=== PATIENT | male | born 1985 | race Caucasian/White ===

== ENCOUNTER 2021-06-14 12:42 | Emergency (ER) | payer MEDICAID, SELFPAY ==
[2021-06-14 13:37] VITALS: BP 230/146; PULSE 94; RESP 18; TEMP 36.6; O2SAT 98; BMI 28.1
[2021-06-14 16:14] LABS: MANUAL DIFF FLAG NO
[2021-06-14 16:17] LABS: Basophils Absolute Auto 0.1 X10*3/uL (0.0-0.2); Basophils Percent Auto 0.5 % (0-2); Hematocrit 48.7 % (42.0-52.0); Hemoglobin 16.8 g/dl (14.0-18.0); Imm Gran Abs Auto 0.02 X10*3/uL (0.00-0.03); Imm Gran Pct Auto 0.2 % (0.0-0.4); Lymphocytes Absolute Auto 1.5 X10*3/uL (1.2-4.9); Lymphocytes Percent Auto 14.9 % (20-40); Mean Corpuscular HGB Conc 34.5 g/dl (31.0-36.0); Mean Corpuscular Hemoglobin 32.9 pg (27.0-33.0); Mean Corpuscular Volume 95.5 fL (80.0-98.0); Mean Platelet Volume 9.4 fL (9.4-12.4); Monocytes Absolute Auto 0.7 X10*3/uL (0.1-1.2); Monocytes Percent Auto 6.7 % (2-11); Neutrophils Percent Auto 77.7 % (45-73); Platelet Count 315 X10*3/uL (160-400); Red Cell Distribution Width 11.9 % (11.0-16.0); White Blood Count 10.3 X10*3/uL (4.8-10.8)
[2021-06-14 16:37] LABS: Alanine Aminotransferase 124 U/L (0-40); Albumin Level 4.9 g/dL (3.5-5.0); Alkaline Phosphatase 70 U/L (39-117); Anion Gap 18 (12-20); Aspartate Amino Transferase 64 U/L (5-37); Bilirubin Total 1.1 mg/dL (0.0-1.0); Blood Urea Nitrogen 8 mg/dL (9-16); Calcium 10.2 mg/dL (8.4-10.2); Carbon Dioxide 22 mmol/L (22-29); Chloride 103 mmol/L (96-108); Creatinine Clr Calc Pharmacy 125.9; Estimated Glomerular Filt Rate > 60; Glucose Random 102 mg/dL (60-115); Potassium 4.3 mmol/L (3.3-5.1); Sodium 139 mmol/L (135-145); Total Protein 8.5 g/dL (6.5-8.0)
[2021-06-14 16:56] VITALS: BP 212/100; PULSE 90; RESP 19; O2SAT 97
--- NOTE | 2021-06-14 16:57 | PC.NURSE ---
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 PT DENIES ANY CP OR SOB. PT STATES HE JUST GETS ANXIOUS WHEN COMING HERE TODAY. PT IS A [employer] PATIENT AND USES [employer] TO HELP HIM SLEEP AT NIGHT.
[2021-06-14] MEDS: LORazepam 1 MG TABLET PO (17:01)
--- NOTE | 2021-06-14 17:19 | ED_ITS ---
HPI - Skin/Abscess/Foreign Bdy General Chief complaint: Skin/Abscess/Foreign Body Stated complaint: WOUND CHECK Time Seen by Provider: 06/14/21 16:47 Source: patient Mode of arrival: ambulatory Limitations: no limitations History of Present Illness HPI narrative: 35 year old male presents the ED with recurrence of an abscess to the right side of the neck X5 days progressivly worsening. Patient states he had an abscess to this area previously around a year ago. He states it was so large a year ago that he was advised to follow up with ENT, however, he did not. He denies fevers, chills, nausea, vomiting, chest pain, shortness of breath, WELLS, dizziness. MD complaint: abscess/boil Onset (ago): day(s) (5) Location: neck (right ) Severity: moderate Quality: constant and other (pressure ) Pain Consistency: constant Relieving factors: none Exacerbating factors: none Context: none Associated symptoms: denies other symptoms Treatments prior to arrival: none Related Data Previous Rx's Medication Instructions Recorded cephalexin 500 mg capsule 500 mg PO Q6H 10 Days #40 cap 06/14/21 doxycycline hyclate 100 mg tablet 100 mg PO BID 10 Days #20 tab 06/14/21 Allergies Allergy/AdvReac Type Severity Reaction Status Date / Time No Known Allergies Allergy Verified 06/14/21 13:35 Review of Systems Review of Systems: Constitutional : No Fever, No Chills, Cardiovascular : No Chest Pain, No SOB Respiratory : No Dyspnea Gastrointestinal : No abdominal pain Musculoskeletal : No Joint Swelling Skin : No rash, positive abceess Neuro : No Weakness, No Numbness Psych : No SI/HI PMFSH Past Medical History Attestation statement: The following information was validated with the patient. Source: old records reviewed and nursing notes reviewed Social History Social History Advance Directives: No Advance Directives Information Provided: Yes Physical Exam Vital Signs: Vital Signs: Last Vital Signs Temp 97.9 F 06/14/21 13:37 Pulse 90 06/14/21 16:56 Resp 19 06/14/21 16:56 BP 212/100 H 06/14/21 16:56 Pulse Ox 97 06/14/21 16:56 Body Mass Index 28.1 Appearance: Alert.? Oriented X3.? No acute distress.? Head: Normocephalic, atraumatic, no step-offs or deformities Eyes: Pupils equal, round and reactive to light.? ENT: Pharynx normal.? Neck: Normal inspection.? Neck supple.? CVS: Normal heart rate and rhythm.? Pulses normal.? Respiratory: No respiratory distress.? Breath sounds normal.? Abdomen: Soft and nontender.? Skin: Skin warm and dry.? Normal skin color.? Normal skin turgor.?+3 cm in diameter fluctuant area to the right side of the neck, with mild erythema overlying the area, no streaking noted. Extremities: No lower extremity edema.? No calf ttp. 5/5 strength to bilateral upper and lower extremities Back: No midline tenderness, no C-spine tenderness, full range of motion, no CVA tenderness bilaterally Neuro: Oriented X 3.? No motor deficit.? No sensory deficit. Course Reevaluation(s) Reevaluation #1: A bedside incision and drainage was done using 1% lidocaine, there was 4 cc of fluid expressed from the area. Patient tolerated the pr ocedure well. No complications. Area was cleaned well with Betadine and saline. A dressing was applied to the area. Patient's blood pressure still noted to be elevated, patient plans to visit for evaluation of his blood pressure. I have advised the patient to take his blood pressure at home, write down low blood pressure readings and should these with his primary care provider. At this time patient is safe for discharge home if blood pressure lowers,he will be discharged on 2 different antibiotics Keflex and doxycycline. Time: 17:45 Reevaluation #2: Patient's blood pressure remains elevated to 119/108. I discussed this case with Dr. Castellanos who agrees that blood work, and EKG should be obtained. Patient states that it does not matter, he states he is anxious and he would like to leave. I explained to patient that this is very dangerous, we have to rule out that there is no cardiac issues. I also explained to the patient the risks of leaving with such a high blood pressure such as stroke, and potentially .As stated previously patients BP is noted to be elevated but he denies dizziness, headache, neck pain, vision changes, lightheadedness. He will follow up with Dr. Oconnell this week he says. Since I do not feel as though patient is safe for discharge home, patient will have to leave against medical advice. Time: 18:29 MDM - Skin/Abscess/Foreign Bdy MDM Narrative Medical decision making narrative: [id number] 35 year old male presents the ED with recurrence of an abscess to the right side of the neck X5 days progressively worsening. On exam patient appears well, vital signs show an elevated blood pressure 212/100, pulse of 90 patient states that he has white coat hypertension, but when he takes his pressures at home and is much lower. There is 3 cm in diamet er fluctuant area to the right side of the neck, with mild erythema overlying the area, no streaking noted. Lungs are clear to auscultation. S1-S2 appreciated free of murmurs. Abdomen soft nontender nondistended Plan bedside incision and drainage. Using 1% lidocaine. He will also be given Ativan, to help him relax, blood pressure will be repeated prior to discharge. He will also be given his 1st doses of medication here Keflex, and doxycycline. Lab Data Result diagrams: 06/14/21 16:09 06/14/21 16:09 Labs: Lab Results 06/14/21 06/14/21 Range/Units 16:09 16:09 WBC 10.3 (4.8-10.8) X10*3/uL RBC 5.10 (4.60-5.80) X10*6/uL Hgb 16.8 (14.0-18.0) g/dl Hct 48.7 (42.0-52.0) % MCV 95.5 (80.0-98.0) fL MCH 32.9 (27.0-33.0) pg MCHC 34.5 (31.0-36.0) g/dl RDW 11.9 (11.0-16.0) % Plt Count 315 (160-400) X10*3/uL MPV 9.4 (9.4-12.4) fL Immature Gran % (Auto) 0.2 (0.0-0.4) % Neut % (Auto) 77.7 H (45-73) % Lymph % (Auto) 14.9 L (20-40) % Millard % (Auto) 6.7 (2-11) % Eos % (Auto) 0.0 (0-4) % Baso % (Auto) 0.5 (0-2) % Lymph # (Auto) 1.5 (1.2-4.9) X10*3/uL Millard # (Auto) 0.7 (0.1-1.2) X10*3/uL Eos # (Auto) 0.0 (0.0-0.4) X10*3/uL Baso # (Auto) 0.1 (0.0-0.2) X10*3/uL Abs Immat Gran (auto) 0.02 (0.00-0.03) X10*3/uL Absolute Neuts (auto) 8.0 (2.0-8.3) x10*3/uL Absolute Nucleated RBC 0.000 (0.0-0.012) X10*3/uL Nucleated RBC % (auto) 0.0 (0.0-0.2) /100WBC Sodium 139 (135-145) mmol/L Potassium 4.3 (3.3-5.1) mmol/L Chloride 103 (96-108) mmol/L Carbon Dioxide 22 (22-29) mmol/L Anion Gap 18 (12-20) BUN 8 L (9-16) mg/dL Creatinine 1.06 (0.5-1.4) mg/dL Estim Creat Clear Calc 125.9 Estimated GFR > 60 Random Glucose 102 (60-115) mg/dL Calcium 10.2 (8.4-10.2) mg/dL Total Bilirubin 1.1 H (0.0-1.0) mg/dL AST 64 H (5-37) U/L ALT 124 H (0-40) U/L Alkaline Phosphatase 70 (39-117) U/L Total Protein 8.5 H (6.5-8.0) g/dL Albumin 4.9 (3.5-5.0) g/dL Procedures Abscess I/D Site: neck (right ) Side (if applicable): right Local Anesthetic: lidocaine 1% Amount of anesthesia used (mL): 3 Technique: incised with blade Amount of fluid expressed (mL): 4 Sent for culture/gram staining?: No Irrigation: Yes Packing used?: none Critical Care Time Critical Care Time Critical Care Time: No Discharge Plan Discharge Clinical Impression: Abscess of skin or subcutaneous tissue, Hypertension, Left against medical advice Patient Disposition: Left Against Medical Advice Instructions: Abscess (ED), Abscess Incision and Drainage (DC), Against Medical Advice (ED) Additional Instructions: Take your medications as prescribed. If you were prescribed antibiotics today, it is important that you take your medication to their entirety, do not skip any doses, do not finish them early. Doxycycline can make your skin sensitive in direct sunlight. Please avoid dire ct sunlight. Follow up with ENT Follow-up with your primary care provider this week. Check your blood pressure Friday, Friday and Friday and share this information with PCP Your blood pressure was extremely elevated, I did not feel as though you are safe for discharge, you chose to sign out against medical advice. I explained these wrist to use such as cardiac etiologies, and potential risks for stroke. You comprehended this information, decided to leave anyway. This could be life threatening. Return to the emergency department with new or worsening symptoms. In case of emergency call 911 Prescriptions: New doxycycline hyclate 100 mg tablet 100 mg PO BID 10 Days Qty: 20 RF: 0 cephalexin 500 mg capsule 500 mg PO Q6H 10 Days Qty: 40 RF: 0 Referrals: Rosas Oconnell MD [Primary Care Provider] - 2 days Stand Alone Forms: Work/School Release
[2021-06-14] MEDS: cephALEXin 500 MG CAPSULE PO (17:32)
[2021-06-14] MEDS: Lidocaine HCl 1 % MPF 5 ML VIAL SUBCUT ×2 (17:41)
== END 2021-06-14 18:50 | disposition left against medical advice (07) ==
PROVIDERS: Emergency Provider Emergency Medicine; PCP Internal Medicine
DX: L02.11 Cutaneous abscess of neck (principal); I10 Essential (primary) hypertension
CPT/HCPCS: 10060; 36415; 80053; 85025; 99283; 99284

== ENCOUNTER 2021-06-29 12:34 | Outpatient (REF) | payer MEDICAID, SELFPAY ==
[2021-06-29 14:25] LABS: Alanine Aminotransferase 118 U/L (0-40); Albumin Level 4.8 g/dL (3.5-5.0); Alkaline Phosphatase 74 U/L (39-117); Anion Gap 17 (12-20); Aspartate Amino Transferase 56 U/L (5-37); Bilirubin Total 1.1 mg/dL (0.0-1.0); Blood Urea Nitrogen 11 mg/dL (9-16); Calcium 10.3 mg/dL (8.4-10.2); Carbon Dioxide 23 mmol/L (22-29); Chloride 102 mmol/L (96-108); Cholesterol 248 mg/dL; Estimated Glomerular Filt Rate > 60; Glucose Random 110 mg/dL (60-115); Potassium 4.4 mmol/L (3.3-5.1); Sodium 138 mmol/L (135-145); Total Protein 8.4 g/dL (6.5-8.0)
[2021-06-29 14:32] LABS: Free T4 (Free Thyroxine) 1.11 ng/dL (0.71-1.85); Thyroid Stimulating Hormone 1.65 uIU/mL (0.32-4.0)
== END 2021-06-29 12:35 | disposition home or self-care (01) ==
LOC: HO.10HDL 12:34
PROVIDERS: Visit Provider Internal Medicine
DX: F41.9 Anxiety disorder, unspecified (principal); R63.5 Abnormal weight gain; R79.89 Other specified abnormal findings of blood chemistry
CPT/HCPCS: 36415; 80053; 82465; 84439; 84443